=== PATIENT | male | born 1970 | race African-American/Black ===

== ENCOUNTER 2017-11-21 12:37 | Emergency (ER) | payer MEDICAID ==
[~2017-11-21] VITALS: Ht 185.4 cm; Wt 77.0 kg
[~2017-11-21 12:37] MED LIST: ALBU6.7H INH; IBUP-2028 PO
[2017-11-21 12:44] VITALS: BP 163/106
[2017-11-21 15:13] LABS: EOSINOPHILS % 0.1 % (0.0-5.0); HEMATOCRIT. 41.5 % (42.0-52.0); HEMOGLOBIN. 14.6 g/dL (14.0-18.0); MEAN CORPUSCULAR HEMOGLOBIN 30.3 pg (28.0-32.0); MEAN CORPUSCULAR VOLUME 86.2 fL (80.0-94.0); MEAN PLATELET VOLUME 7.4 fl (7.4-10.4); MONOCYTES % 9.8 % (2.0-8.0); NEUTROPHILS % 69.1 % (40.0-76.0); PLATELET 297 x1000/uL (130-400); RED BLOOD CELL COUNT 4.82 mill/uL (4.7-6.1); RED CELL DISTRIBUTION WIDTH 15.5 % (11.6-14.6)
[2017-11-21 15:16] LABS: CHLORIDE 101 mEq/L (98-107)
== END 2017-11-21 16:00 | disposition left against medical advice (07) ==
LOC: ER 15:39
DX: R07.89 Other chest pain (principal); R00.0 Tachycardia, unspecified; J98.4 Other disorders of lung; J45.909 Unspecified asthma, uncomplicated; F17.210 Nicotine dependence, cigarettes, uncomplicated; F12.90 Cannabis use, unspecified, uncomplicated
CPT/HCPCS: 36415; 71045; 80053; 83690; 85025; 93005; 99285

== ENCOUNTER 2018-10-20 17:36 | Emergency (ER) | payer MEDICAID ==
[~2018-10-20] VITALS: Ht 188 cm; Wt 80.0 kg
[2018-10-20] MEDS ORDERED: SODIUM CHLORIDE 0.9% 1,000 ML IV ONE (17:52)
[2018-10-20] MEDS ORDERED: ONDANSETRON HCL 4MG/2ML INJ IV ONE (18:00)
[2018-10-20 18:33] LABS: *AMPHETAMINES SCREEN URINE NEGATIVE (NEGATIVE); *BARBITURATES SCREEN URINE NEGATIVE (NEGATIVE); *BENZODIAZEPINES SCREEN URINE NEGATIVE (NEGATIVE)
[2018-10-20 18:34] LABS: *COCAINE SCREEN URINE PRESUMTIVE POSITIVE (NEGATIVE); CANNABINOID URINE SCREEN PRESUMTIVE POSITIVE (NEGATIVE); METHADONE URINE SCREEN NEGATIVE (NEGATIVE); OPIATES URINE SCREEN NEGATIVE (NEGATIVE); PHENCYCLIDINE URINE SCREEN NEGATIVE (NEGATIVE)
[2018-10-20 19:42] LABS: HEMATOCRIT. 36.2 % (42.0-52.0); HEMOGLOBIN. 12.7 g/dL (14.0-18.0); MEAN CORPUSCULAR HEMOGLOBIN 30.3 pg (28.0-32.0); MEAN CORPUSCULAR VOLUME 86.8 fL (80.0-94.0); MEAN PLATELET VOLUME 7.6 fl (7.4-10.4); PLATELET 190 x1000/uL (130-400); RED BLOOD CELL COUNT 4.18 mill/uL (4.7-6.1); RED CELL DISTRIBUTION WIDTH 14.8 % (11.6-14.6)
[2018-10-20 19:43] LABS: CHLORIDE 103 mEq/L (98-107)
[2018-10-20 19:47] LABS: ETHANOL BLOOD 85 mg/dL
[2018-10-20 20:04] LABS: PLATELET ESTIMATE NORMAL
[2018-10-20 22:20] VITALS: BP 112/71
== END 2018-10-20 22:21 | disposition home or self-care (01) ==
LOC: ER 17:36
DX: R55 Syncope and collapse (principal); S01.81XA Laceration without foreign body of other part of head, initial encounter; W18.39XA Other fall on same level, initial encounter; Y93.89 Activity, other specified; Y92.9 Unspecified place or not applicable; J45.909 Unspecified asthma, uncomplicated
CPT/HCPCS: 12011; 36415; 70450; 80053; 80305; 80307; 80320; 80329; 82962; 83735; 84484; 85025; 93005; 96361; 96374; 99284; J2405; J7030; G0480